=== PATIENT | female | born 1945 | race Caucasian/White ===

== ENCOUNTER 2024-10-29 12:51 | Emergency (ER) | payer OTHER, SELFPAY ==
--- NOTE | 2024-10-29 12:52 | ED_ITS ---
HPI - Skin/Abscess/Foreign Bdy General Chief complaint: Animal Bite Stated complaint: Tick Bite Time Seen by Provider: 10/29/24 12:51 Source: patient Mode of arrival: ambulatory Limitations: no limitations History of Present Illness HPI narrative: Edith is an 79-year-old female patient presenting to the clinic today with complaints of a tick bite to the right mid back. Her daughter pulled off the tick today. Not known how long tech was possibly on. Has red small swollen area to the back where the tick was attached. Related Data Home Medications ?Medication ?Instructions ?Recorded ?Confirmed ?Last Taken ?Type cyclobenzaprine 5 mg tablet mg 10/29/24 Unknown History esomeprazole magnesium 40 mg mg 10/29/24 Unknown History capsule,delayed release famotidine 20 mg tablet mg 10/29/24 Unknown History hydrochlorothiazide 25 mg tablet mg 10/29/24 Unknown History ondansetron HCl 4 mg tablet mg 10/29/24 Unknown History Allergies Allergy/AdvReac Type Severity Reaction Status Date / Time Sulfa (Sulfonamide Allergy Severe Shakiness Verified 10/29/24 13:02 Antibiotics) Penicillins Allergy Intermediate Unknown Verified 10/29/24 13:02 Review of Systems Review of Systems: Pertinent positives per HPI. Patient denies any fever, chills, rash, headache, visual changes, dizziness, cough, runny nose, sore throat, shortness of breath, chest pain, palpitations, nausea, vomiting, diarrhea, constipation, abdominal pain, or any urinary issues. PMFSH Comments At the time of my signature, I reviewed and agree with the nursing past medical, surgical, social, and family history. There is no relevant family history pertinent to the patient complaint. Exam Narrative: General: Well-developed, well nourished, in no apparent distress Head: Normocephalic, atraumatic. Cardio: Regular rate and rhythm, s1 and s2 normal, no murmur appreciated. Resp: Clear to auscultation bilaterally, no rhonchi, rales, wheezing or rubs. Integumentary: Basin, warm, and dry, small mildly raised 0.25 cm redness with tick mandible-cleansed with alcohol and removed using 18 gauge needle [place]. Patient tolerated well. Triple antibiotic ointment Band-Aid was applied Course Course Emergency Course: Portions of this record may have been created with voice recognition software. Level of Care: Express Care Visit Vital Signs Vital signs: Vital signs reviewed MDM - Skin/Abscess/Foreign Bdy MDM Narrative Medical decision making narrative: At the time of visit patient is resting comfortably on the exam table. Patient appears to be nontoxic. Plan: Patient has tick bite. Will send in prescription for doxycycline. Supportive measures were discussed with the patient and they voiced understanding discharge instructions and agrees to treatment plan. Return precautions reviewed Differential Diagnosis Differential diagnosis: Likely abscess of skin or subcutaneous tissue, viral exanthem, dermatophytosis, urticaria, herpes zoster, allergic reaction to drug, cellulitis, eczema, insect bites, impetigo, contact dermatitis and other (Tick bite, Lyme disease, [place] spotted fever, insect bite infection) Discharge Plan Discharge Clinical Impression: Tick bite of back Patient Disposition: Home Condition: Stable Instructions: Antibiotic Form, Tick Bite (ED) Additional Instructions: Keep area clean and dry May take Tylenol/Motrin as needed for pain or fever Take doxycycline as prescribed Follow-up with your primary care doctor in 2-3 days if symptoms persist Patient Language: Swedish Prescriptions: New doxycycline monohydrate 100 mg capsule 100 mg PO BID 7 Days Qty: 14 0RF No Action ondansetron HCl 4 mg tablet famotidine 20 mg tablet esomeprazole magnesium 40 mg capsule,delayed release(DR/EC) hydrochlorothiazide 25 mg tablet cyclobenzaprine 5 mg tablet Follow-up/Referrals: UNKNOWN,DOCTOR [Primary Care Provider] - Time of Disposition: 13:09 Quality NIHSS Nursing Documentation ED NIHSS nursing documentation: reviewed/agree
[2024-10-29 13:09] VITALS: BP 1125/68; PULSE 57; RESP 20; TEMP 36; O2SAT 98
== END 2024-10-29 13:21 | disposition home or self-care (01) ==
PROVIDERS: Emergency Provider Nurse Practitioner Family
DX: S20.461A Insect bite (nonvenomous) of right back wall of thorax, initial encounter (principal); W57.XXXA Bitten or stung by nonvenomous insect and other nonvenomous arthropods, initial encounter; I10 Essential (primary) hypertension; K21.9 Gastro-esophageal reflux disease without esophagitis; Z85.72 Personal history of non-Hodgkin lymphomas
CPT/HCPCS: 99203; G0463